=== PATIENT | female | born 1985 | race Caucasian/White ===

== ENCOUNTER 2020-11-24 11:41 | Emergency (ER) | payer BC ==
[~2020-11-24] VITALS: Ht 157.5 cm; Wt 66.7 kg
--- NOTE | 2020-11-24 11:48 | NUR ---
PT AMBULATORY TO ER BED 04 C/O RLQ ABDOMINAL PAIN. STATES INTERMITTENT X 5 AYS FAND STARTED AT THE UPPER ABDOMEN. PT DENIES VOMITTING AND DIARRHEA. STABLE VITALS. AWAITING MD CHASE.
--- NOTE | 2020-11-24 11:50 | NUR ---
DR BOSE AT BEDSIDE FOR EVAL.
[2020-11-24 12:10] LABS: BASOPHILS # (AUTO) 0.1 /CMM (0.0-0.2); EOSINOPHILS % (AUTO) 1.8 % (0.0-6.0); HEMATOCRIT 42 % (33-45); HEMOGLOBIN 14.2 g/dL (11.5-14.8); LYMPHOCYTES # (AUTO) 1.2 /CMM (0.8-4.8); LYMPHOCYTES % (AUTO) 19.3 % (20.0-44.0); MEAN CORPUSCULAR HGB CONC 34 g/dl (31.0-36.0); MEAN CORPUSCULAR VOLUME 88 fL (82-100); MONOCYTES # (AUTO) 0.4 /CMM (0.1-1.30); MONOCYTES % (AUTO) 6.8 % (2.0-12.0); NEUTROPHILS # (AUTO) 4.4 /CMM (1.8-8.9); NEUTROPHILS % (AUTO) 70.1 % (43.0-81.0); PLATELET COUNT (AUTO) 208 /CMM (150-450); RED BLOOD CELL COUNT(AUTO) 4.81 MIL/uL (4.0-5.2); WHITE BLOOD COUNT (AUTO) 6.3 K/uL (4.3-11.0)
[2020-11-24 12:11] LABS: BILIRUBIN,URINE Negative (NEGATIVE); COLOR,URINE YELLOW (YELLOW); LEUKOCYTE ESTERASE ,URINE Negative (NEGATIVE); NITRITE, URINE Negative (NEGATIVE); PH,URINE 7.5 (5.0-8.0); PROTEIN,URINE Negative (NEGATIVE); UGLUCOSE Negative (NEGATIVE); UROBILINOGEN,URINE 0.2 EU/dL (0.2)
[2020-11-24 12:15] LABS: CREATININE 0.7 mg/dL (0.6-1.3); POTASSIUM 3.7 mmol/L (3.5-5.1)
--- NOTE | 2020-11-24 12:25 | NUR ---
PT TO RADIOLOGY FOR CT ABDOMEN AND PELVIS VIA WHEELCHAIR.
[2020-11-24 12:27] LABS: BILIRUBIN,DIRECT 0.2 mg/dL (0.0-0.2); BILIRUBIN,TOTAL 0.7 mg/dL (0.2-1.0); TOTAL PROTEIN, SERUM 7.4 g/dL (6.4-8.2)
[2020-11-24] MEDS ORDERED: IOHEXOL-300 100 ML VIAL IV ONE (12:31)
[2020-11-24] MEDS ORDERED: IV NS 0.9% 250 ML IV ONE (12:31)
--- NOTE | 2020-11-24 14:07 | NUR ---
Patient discharged to home in stable condition. Written and verbal after care instructions given. Patient verbalizes understanding of instruction. IV removed. Catheter intact and site benign. Pressure and 4x4 applied to site. No bleeding noted.
[2020-11-24 14:08] VITALS: BP 124/82
== END 2020-11-24 14:09 | disposition home or self-care (01) ==
LOC: ER 11:54
DX: N83.201 Unspecified ovarian cyst, right side (principal); R10.31 Right lower quadrant pain; J45.909 Unspecified asthma, uncomplicated
CPT/HCPCS: 36415; 74177; 80048; 80076; 81003; 83690; 84703; 85025; 99285; J7050; Q9967